=== PATIENT | female | born 1990 | race Two or more races ===

== ENCOUNTER 2018-03-05 18:11 | Emergency (ER) | payer SELFPAY ==
[2018-03-05 18:24] LABS: URINE HCG POC HCG POSITIVE (Negative)
[2018-03-05 18:50] LABS: ADD MAN DIFF? NO
[2018-03-05 18:52] LABS: BASO # 0.1 x10^3/uL (0.0-0.2); BASO % 1 % (0-3); EOS # 0.3 x10^3/uL (0.0-0.7); EOS % 3 % (0-3); HEMATOCRIT 34.1 % (36.0-47.0); HEMOGLOBIN 11.6 g/dL (12.0-15.5); LYMPH # 2.9 x10^3/uL (1.0-4.8); LYMPH % 28 % (24-48); MEAN CORPUSCULAR HEMOGLOBIN 28 pg (25-35); MEAN CORPUSCULAR HGB CONC 34 g/dL (31-37); MEAN CORPUSCULAR VOLUME 81 fL (79-100); MONO # 0.8 x10^3/uL (0.0-1.1); MONO % 7 % (0-9); NEUT # 6.4 x10^3uL (1.8-7.7); NEUT % 61 % (31-73); PLATELET COUNT 384 x10^3/uL (140-400); RED BLOOD COUNT 4.19 x10^6/uL (3.50-5.40); RED CELL DISTRIBUTION WIDTH 13.3 % (11.5-14.5); WHITE BLOOD COUNT 10.5 x10^3/uL (4.0-11.0)
[2018-03-05] MEDS: IV NORMAL SALINE 1000ML BAG 1,000 ML IV (18:55)
[2018-03-05 18:56] LABS: BILIRUBIN,URINE NEGATIVE (NEG); CLARITY,URINE CLOUDY; COLOR,URINE YELLOW; GLUCOSE,URINE NEGATIVE (NEG); NITRITE,URINE NEGATIVE (NEG); PH,URINE 6.5; PROTEIN,URINE NEGATIVE (NEG-TRACE); UROBILINOGEN,URINE 0.2 mg/dL (0.2 mg/dL)
[2018-03-05 19:01] LABS: ANION GAP 10 (6-14); BLOOD UREA NITROGEN 11 mg/dL (7-20); BUN/CREATININE RATIO 18 (6-20); CALCIUM 8.9 mg/dL (8.5-10.1); CARBON DIOXIDE 23 mmol/L (21-32); CHLORIDE 103 mmol/L (98-107); CREATININE 0.6 mg/dL (0.6-1.0); GFR 119.9; GLUCOSE 87 mg/dL (70-99); POTASSIUM 3.5 mmol/L (3.5-5.1); SODIUM 136 mmol/L (136-145)
[2018-03-05 19:07] LABS: ALBUMIN 3.6 g/dL (3.4-5.0); ALBUMIN/GLOBULIN RATIO 0.8 (1.0-1.7); ALK PHOS 75 U/L (46-116); ALT (SGPT) 29 U/L (14-59); AST (SGOT) 21 U/L (15-37); MAGNESIUM 1.9 mg/dL (1.8-2.4); TOTAL BILIRUBIN 0.2 mg/dL (0.2-1.0); TOTAL PROTEIN 8.2 g/dL (6.4-8.2)
[2018-03-05 19:13] LABS: BACTERIA,URINE MODERATE /HPF (0-FEW); SQUAMOUS EPITHELIAL CELL,UR MANY /LPF; YEAST,URINE PRESENT /HPF
[2018-03-05] MEDS: AZITHROMYCIN 250 MG TABLET. PO (20:37)
[2018-03-05] MEDS: metroNIDAZOLE 500 MG TABLET PO (20:37)
[2018-03-05] MEDS: cefTRIAXone IM 250 MG VIAL IM (20:37)
[2018-03-07 14:37] LABS: CHLAMYDIA PROBE Negative (Negative); GC PROBE Negative (Negative)
== END 2018-03-05 21:07 | disposition home or self-care (01) ==
LOC: ER 18:11
DX: O23.41 Unspecified infection of urinary tract in pregnancy, first trimester (principal); O98.811 Other maternal infectious and parasitic diseases complicating pregnancy, first trimester; B37.3 Candidiasis of vulva and vagina; O23.591 Infection of other part of genital tract in pregnancy, first trimester; B96.89 Other specified bacterial agents as the cause of diseases classified elsewhere; Z3A.01 Less than 8 weeks gestation of pregnancy
CPT/HCPCS: 36415; 76801; 80053; 81001; 81025; 83735; 84702; 85025; 86900; 86901; 87491; 87591; 96372; 99285-25; J0696; J7030; Q0111; Q0144

== ENCOUNTER 2018-10-24 06:03 | Inpatient (IN) | payer OTHER ==
[~2018-10-24] VITALS: Ht 152.4 cm; Wt 74.4 kg
[~2018-10-24 06:03] MED LIST: CEPH-264 PO; FLUC150T PO; METR500T PO
[2018-10-24] MEDS ORDERED: ONDANSETRON PF 4 MG/2 ML VIAL. IV PRN ×2 (06:15→13:00)
[2018-10-24] MEDS ORDERED: MAG HYDROX/ALUMINUM HYD/SIMETH 30 ML ORAL.SUSP PO PRN ×2 (06:15→15:30)
[2018-10-24] MEDS ORDERED: NALBUPHINE 10 MG/ML AMPUL. IV PRN (06:15)
[2018-10-24] MEDS ORDERED: 0.9 % SODIUM CHLORIDE 10 ML DISP.SYRIN. IV PRN ×2 (06:15→15:30)
[2018-10-24] MEDS ORDERED: AMPICILLIN SODIUM 2 GM in IV NORMAL SALINE 100ML 100 ML IV ONE (06:15)
[2018-10-24] MEDS ORDERED: TERBUTALINE 1 MG/ML VIAL. SQ PRN (06:15)
[2018-10-24] MEDS ORDERED: OXYTOCIN 30 UNIT/500 ML PREMIX 500 ML IV PRN ×3 (06:15→15:30)
[2018-10-24] MEDS ORDERED: LIDOCAINE 1% PF 30 ML VIAL. INJ PRN (06:15)
[2018-10-24] MEDS ORDERED: IV RINGERS,LACTATED 1000ML 1,000 ML IV SCH ×2 (06:15→12:49)
[2018-10-24] MEDS ORDERED: ACETAMINOPHEN 325 MG TABLET. PO PRN ×2 (06:15→15:30)
[2018-10-24 06:55] LABS: BASO # 0.1 x10^3/uL (0.0-0.2); BASO % 1 % (0-3); EOS # 0.1 x10^3/uL (0.0-0.7); EOS % 1 % (0-3); HEMATOCRIT 34.7 % (36.0-47.0); HEMOGLOBIN 11.5 g/dL (12.0-15.5); LYMPH # 2.7 x10^3/uL (1.0-4.8); LYMPH % 25 % (24-48); MEAN CORPUSCULAR HEMOGLOBIN 27 pg (25-35); MEAN CORPUSCULAR HGB CONC 33 g/dL (31-37); MEAN CORPUSCULAR VOLUME 82 fL (79-100); MONO # 0.6 x10^3/uL (0.0-1.1); MONO % 6 % (0-9); NEUT # 7.2 x10^3uL (1.8-7.7); NEUT % 67 % (31-73); PLATELET COUNT 310 x10^3/uL (140-400); RED BLOOD COUNT 4.23 x10^6/uL (3.50-5.40); RED CELL DISTRIBUTION WIDTH 13.9 % (11.5-14.5); WHITE BLOOD COUNT 10.7 x10^3/uL (4.0-11.0)
[2018-10-24 08:54] LABS: BILIRUBIN,URINE NEGATIVE (NEG); CLARITY,URINE CLEAR; COLOR,URINE AMBER; NITRITE,URINE NEGATIVE (NEG); PROTEIN,URINE 30 mg/dL (NEG-TRACE)
[2018-10-24] MEDS ORDERED: OXYTOCIN PREMIX 30 UNIT/500 ML BAG. IV ONE (09:00)
[2018-10-24 09:13] LABS: SQUAMOUS EPITHELIAL CELL,UR MANY /LPF
[2018-10-24 09:14] LABS: BACTERIA,URINE MODERATE /HPF (0-FEW); RBC,URINE FOBS /HPF (0-2)
[2018-10-24] MEDS ORDERED: AMPICILLIN SODIUM 1 GM in IV NORMAL SALINE 50ML 50 ML IV SCH (10:00)
[2018-10-24] MEDS ORDERED: fentaNYL PF VIAL 100 MCG/2 ML VIAL IV PRN (11:45)
[2018-10-24] MEDS ORDERED: ROPIVacaine 0.2% PF 10 ML VIAL. ONE (12:10)
[2018-10-24] MEDS ORDERED: L&D EPIDURAL SYRINGE 50 ML ONE (12:10)
[2018-10-24] MEDS ORDERED: NALOXONE 0.4 MG/ML VIAL. IV PRN (13:00)
[2018-10-24] MEDS ORDERED: ePHEDrine PF IN SALINE 50 MG/10 ML SYRINGE. IV PRN (13:00)
[2018-10-24] MEDS ORDERED: ROPIVacaine 0.2% IN 0.9%NACL PF 40 MG/20 ML DISP.SYRIN. EPID PRN (13:00)
[2018-10-24] MEDS ORDERED: L&D EPIDURAL SYRINGE 50 ML EPID PRN (13:00)
[2018-10-24] MEDS ORDERED: fentaNYL PF VIAL 100 MCG/2 ML VIAL EPI PRN (13:00)
[2018-10-24] MEDS ORDERED: ZOLPIDEM 5 MG TABLET. PO PRN (15:30)
[2018-10-24] MEDS ORDERED: BENZOCAINE 20% TOPICAL AEROSOL SPRAY 57GM CAN. TP PRN (15:30)
[2018-10-24] MEDS ORDERED: SIMETHICONE 80 MG TAB.CHEW PO PRN (15:30)
[2018-10-24] MEDS ORDERED: HYDROCORTISONE 1% TOPICAL OINTMENT 30GM TUBE. TP PRN (15:30)
[2018-10-24] MEDS ORDERED: MAGNESIUM HYDROXIDE 2,400 MG/30 ML ORAL.SUSP. PO PRN (15:30)
[2018-10-24] MEDS ORDERED: MMR per PROTOCOL. MC PRN (15:30)
[2018-10-24] MEDS ORDERED: diphenhydrAMINE HCL 25 MG CAPSULE PO PRN (15:30)
[2018-10-24] MEDS ORDERED: oxyCODONE/APAP 5/325 1 TAB TABLET PO PRN (15:30)
[2018-10-24] MEDS ORDERED: PHENYLEPH/MINERAL OIL/PETROLAT RECTAL OINTMENT 28GM TUBE. RC PRN ×2 (15:30→17:45)
--- NOTE | 2018-10-24 15:34 | PDOC ---
GENERAL General: 28 yrs old lady EDC 10/25/18 admitted for Induction of Labor. Cervix Closed on Admission. Will start her on Pitocin.for Labor Induction. VITAL SIGNS Vital Signs: Vital Signs Date Time Temp Pulse Resp B/P (MAP) Pulse Ox O2 Delivery O2 Flow Rate FiO2 10/24/18 11:46 16 ALLERGIES Allergies: Allergies Coded Allergies Type Severity Reaction Last Updated Verified No Known Drug Allergies 03/05/18 No MEDS Medications: Current Medications Medications (Trade) Dose Ordered Sig/Joel Start Time Stop Time Status Last Admin Dose Admin Acetaminophen (Tylenol) 650 mg PRN Q6HRS PRN 10/24/18 06:15 Al Hydroxide/Mg Hydroxide (Mylanta Plus Xs) 30 ml PRN Q4HRS PRN 10/24/18 06:15 Ampicillin Sodium 1 gm/Sodium Chloride 50 ml @ 100 mls/hr Q4H 10/24/18 10:00 10/24/18 11:43 100 MLS/HR Ampicillin Sodium 2 gm/Sodium Chloride 100 ml @ 200 mls/hr 1X ONCE 10/24/18 06:15 10/24/18 06:44 DC 10/24/18 07:57 200 MLS/HR Ephedrine Sulfate (ePHEDrine PF IN SALINE SYRINGE) 10 mg PRN Q2MIN PRN 10/24/18 13:00 Fentanyl Citrate (Fentanyl 2ml Vial) 100 mcg PRN 1X PRN 10/24/18 13:00 10/25/18 12:59 Ibuprofen (Motrin) 800 mg PRN Q6HRS PRN 10/24/18 06:15 Lidocaine HCl (Xylocaine 1% Pf 30ml Vial) 30 ml 1X PRN PRN 10/24/18 06:15 10/26/18 06:14 Nalbuphine HCl (Nubain) 10 mg PRN Q1HR PRN 10/24/18 06:15 Naloxone HCl (Narcan) 0.4 mg PRN Q1MIN PRN 10/24/18 13:00 Ondansetron HCl (Zofran) 4 mg PRN Q6HRS PRN 10/24/18 13:00 Oxytocin/Sodium Chloride 500 ml @ 0 mls/hr CONT PRN PRN 10/24/18 06:15 Ringer's Solution 1,000 ml @ 1,000 mls/hr Q1H 10/24/18 12:49 10/24/18 13:48 DC Ropivacaine (Naropin 0.2%) 10 ml STK-MED ONCE 10/24/18 12:10 10/24/18 12:11 DC Ropivacaine/ Fentanyl/NS 50 ml @ 14 mls/hr CONT PRN 10/24/18 13:00 10/27/18 12:48 Ropivacaine/ Sodium Chloride (ROPIVacaine 0.2% - 0.9%NACL PF) 40 mg PRN 1X PRN 10/24/18 13:00 10/25/18 12:49 Sodium Chloride (Normal Saline Flush) 3 ml QSHIFT PRN 10/24/18 06:15 Terbutaline Sulfate (Brethine) 0.25 mg 1X PRN PRN 10/24/18 06:15 10/25/18 06:14 LAB Lab: Laboratory Tests Test 10/24/18 06:39 10/24/18 08:45 White Blood Count 10.7 x10^3/uL (4.0-11.0) Red Blood Count 4.23 x10^6/uL (3.50-5.40) Hemoglobin 11.5 g/dL (12.0-15.5) Hematocrit 34.7 % (36.0-47.0) Mean Corpuscular Volume 82 fL (79-100) Mean Corpuscular Hemoglobin 27 pg (25-35) Mean Corpuscular Hemoglobin Concent 33 g/dL (31-37) Red Cell Distribution Width 13.9 % (11.5-14.5) Platelet Count 310 x10^3/uL (140-400) Neutrophils (%) (Auto) 67 % (31-73) Lymphocytes (%) (Auto) 25 % (24-48) Monocytes (%) (Auto) 6 % (0-9) Eosinophils (%) (Auto) 1 % (0-3) Basophils (%) (Auto) 1 % (0-3) Neutrophils # (Auto) 7.2 x10^3uL (1.8-7.7) Lymphocytes # (Auto) 2.7 x10^3/uL (1.0-4.8) Monocytes # (Auto) 0.6 x10^3/uL (0.0-1.1) Eosinophils # (Auto) 0.1 x10^3/uL (0.0-0.7) Basophils # (Auto) 0.1 x10^3/uL (0.0-0.2) Treponema pallidum Antibody Nonreactive (Nonreactive) Urine Collection Type Void Urine Color [place] Urine Clarity Clear Urine pH 6.0 Urine Specific [place] 1.025 Urine Protein 30 mg/dL (NEG-TRACE) Urine Glucose (UA) Negative mg/dL (NEG) Urine Ketones (Stick) Negative mg/dL (NEG) Urine Blood Moderate (NEG) Urine Nitrite Negative (NEG) Urine Bilirubin Negative (NEG) Urine Urobilinogen Dipstick 1.0 mg/dL (0.2 mg/dL) Urine Leukocyte Esterase Moderate (NEG) Urine RBC Fobs /HPF (0-2) Urine WBC 11-20 /HPF (0-4) Urine Squamous Epithelial Cells Many /LPF Urine Bacteria Moderate /HPF (0-FEW) Urine Mucus Slight /LPF ASSESSMENT & PLAN A&P Delivered an Alive Male baby 6lbs 9 oz . Spontaneous Vaginal Delivery. 8/9. EBL 200 cc. BASIL COLEMAN MD Oct 24, 2018 15:34
--- NOTE | 2018-10-24 16:38 | OP ---
DATE OF SURGERY: This patient is a 28-year-old Polish lady who is a 2, para 1, EDC 10/25/2018, admitted to the hospital for induction of labor, and this was scheduled induction by Dr. Carrillo, and she was given IV Pitocin. She did receive epidural block during the time of labor. She got to complete dilatation and had a spontaneous vaginal delivery. A live male baby, weighing 6 pounds 9 ounces, delivered, spontaneous vaginal delivery with the score of 8 and 9 at 3:11 p.m. on 10/24/2018, and cord was clamped and cut. Cord blood was taken. Placenta removed spontaneous. No hemorrhage noted. She did receive Pitocin after delivery of the placenta. There is a small superficial first-degree laceration of the vulva, repaired with 2-0 chromic catgut sutures, and the baby is referred to communications administrator for further care and treatment and mother tolerated the delivery well. ESTIMATED BLOOD LOSS: 200 mL. BASIL COLEMAN MD DR: SAMINA/fernandez JOB#: [id number] / [id number]
[2018-10-24] MEDS ORDERED: IBUPROFEN 200 MG TABLET. PO SCH (18:00)
[2018-10-24] MEDS: IBUPROFEN 400 MG TABLET. PO PRN (19:13)
[2018-10-24 19:25] VITALS: BP 109/53
[2018-10-24 20:25] VITALS: BP 106/45
[2018-10-25 01:15] VITALS: BP 89/46
[2018-10-25] MEDS: IBUPROFEN 400 MG TABLET. PO PRN (01:30)
[2018-10-25] MEDS: DOCUSATE SODIUM 100 MG CAPSULE. PO PRN ×2 (01:30→11:01)
[2018-10-25 05:53] VITALS: BP 94/51
[2018-10-25] MEDS ORDERED: FERROUS SULFATE 325 MG TABLET. PO SCH (08:00)
[2018-10-25 11:00] VITALS: BP 113/73
--- NOTE | 2018-10-25 11:32 | PDOC ---
GENERAL General: Mom and Baby doing well. No problems. VITAL SIGNS Vital Signs: Vital Signs Date Time Temp Pulse Resp B/P (MAP) Pulse Ox O2 Delivery O2 Flow Rate FiO2 10/25/18 11:00 98.2 68 18 113/73 (86) 98 Room Air 98.2 ALLERGIES Allergies: Allergies Coded Allergies Type Severity Reaction Last Updated Verified No Known Drug Allergies 03/05/18 No MEDS Medications: Current Medications Medications (Trade) Dose Ordered Sig/Joel Start Time Stop Time Status Last Admin Dose Admin Acetaminophen (Tylenol) 650 mg PRN Q6HRS PRN 10/24/18 15:30 Al Hydroxide/Mg Hydroxide (Mylanta Plus Xs) 30 ml PRN Q4HRS PRN 10/24/18 15:30 Ampicillin Sodium 1 gm/Sodium Chloride 50 ml @ 100 mls/hr Q4H 10/24/18 10:00 10/25/18 06:00 DC 10/24/18 11:43 100 MLS/HR Ampicillin Sodium 2 gm/Sodium Chloride 100 ml @ 200 mls/hr 1X ONCE 10/24/18 06:15 10/25/18 06:00 DC 10/24/18 07:57 200 MLS/HR Benzocaine (Americaine) 1 spray PRN QID PRN 10/24/18 15:30 10/24/18 18:02 1 SPRAY Diphenhydramine HCl (Benadryl) 25 mg PRN Q6HRS PRN 10/24/18 15:30 Diphtheria/ Tetanus/Acell Pertussis (Boostrix) 0.5 ml ONCE ONCE 10/25/18 12:00 10/25/18 12:01 Docusate Sodium (Colace) 100 mg PRN BID PRN 10/24/18 15:30 10/25/18 11:01 100 MG Ephedrine Sulfate (ePHEDrine PF IN SALINE SYRINGE) 10 mg PRN Q2MIN PRN 10/24/18 13:00 Fentanyl Citrate (Fentanyl 2ml Vial) 100 mcg PRN 1X PRN 10/24/18 13:00 10/25/18 12:59 Ferrous Sulfate (Feosol) 325 mg BIDWMEALS 10/25/18 08:00 Hydrocortisone (Cortaid) 1 trina PRN QID PRN 10/24/18 15:30 Ibuprofen (Motrin) 600 mg Q6HRS 10/24/18 18:00 10/25/18 07:33 600 MG Info (Do NOT chart on this placeholder) 1 ea 1X PRN PRN 10/24/18 15:30 Lidocaine HCl (Xylocaine 1% Pf 30ml Vial) 30 ml 1X PRN PRN 10/24/18 06:15 10/26/18 06:14 Magnesium Hydroxide (Milk Of Magnesia) 2,400 mg PRN DAILY PRN 10/24/18 15:30 Nalbuphine HCl (Nubain) 10 mg PRN Q1HR PRN 10/24/18 06:15 Naloxone HCl (Narcan) 0.4 mg PRN Q1MIN PRN 10/24/18 13:00 Ondansetron HCl (Zofran) 4 mg PRN Q6HRS PRN 10/24/18 13:00 Oxycodone/ Acetaminophen (Percocet 5/325) 2 tab PRN Q4HRS PRN 10/24/18 15:30 Oxytocin/Sodium Chloride (Oxytocin Premix Infusion) 30 unit STK-MED ONCE 10/24/18 09:00 10/25/18 08:31 DC Phenyleph/Shark Oil/Min Oil/Petrol (Preparation H) 1 trina PRN DAILY PRN 10/24/18 17:45 UNV Ringer's Solution 1,000 ml @ 1,000 mls/hr Q1H 10/24/18 12:49 10/24/18 13:48 DC Ropivacaine (Naropin 0.2%) 10 ml STK-MED ONCE 10/24/18 12:10 10/24/18 12:11 DC Ropivacaine/ Fentanyl/NS 50 ml @ 14 mls/hr CONT PRN 10/24/18 13:00 10/25/18 06:00 DC 10/24/18 18:41 14 MLS/HR Ropivacaine/ Sodium Chloride (ROPIVacaine 0.2% - 0.9%NACL PF) 40 mg PRN 1X PRN 10/24/18 13:00 10/24/18 18:45 DC 10/24/18 18:43 40 MG Simethicone (Gas-X) 80 mg PRN AFTMEALHC PRN 10/24/18 15:30 Sodium Chloride (Normal Saline Flush) 10 ml QSHIFT PRN 10/24/18 15:30 Terbutaline Sulfate (Brethine) 0.25 mg 1X PRN PRN 10/24/18 06:15 10/25/18 06:14 DC Zolpidem Tartrate (Ambien) 5 mg PRN QHS PRN 10/24/18 15:30 LAB Lab: Laboratory Tests Test 10/25/18 05:30 Hematocrit 31.7 % (36.0-47.0) ASSESSMENT & PLAN A&P Abdomen soft. Uterus firm Lochia normal. Plan dismissal in am. BASIL COLEMAN MD Oct 25, 2018 11:32
[2018-10-25] MEDS ORDERED: DIPHTH,PERTUSS(ACELL),TET TOX 0.5 ML DISP.SYRIN. VAX IM ONE (12:00)
[2018-10-25 15:11] VITALS: BP 104/42
[2018-10-25 21:30] VITALS: BP 106/66
[2018-10-26] MEDS: IBUPROFEN 400 MG TABLET. PO PRN (08:26)
[2018-10-26] MEDS: DOCUSATE SODIUM 100 MG CAPSULE. PO PRN (08:26)
--- NOTE | 2018-10-26 09:54 | PDOC ---
GENERAL General: Patient doing well. No problems. VITAL SIGNS Vital Signs: Vital Signs Date Time Temp Pulse Resp B/P (MAP) Pulse Ox O2 Delivery O2 Flow Rate FiO2 10/25/18 21:30 97.9 76 106/66 (79) 98 97.9 10/25/18 15:11 17 Room Air ALLERGIES Allergies: Allergies Coded Allergies Type Severity Reaction Last Updated Verified No Known Drug Allergies 03/05/18 No MEDS Medications: Current Medications Medications (Trade) Dose Ordered Sig/Joel Start Time Stop Time Status Last Admin Dose Admin Acetaminophen (Tylenol) 650 mg PRN Q6HRS PRN 10/24/18 15:30 Al Hydroxide/Mg Hydroxide (Mylanta Plus Xs) 30 ml PRN Q4HRS PRN 10/24/18 15:30 Ampicillin Sodium 1 gm/Sodium Chloride 50 ml @ 100 mls/hr Q4H 10/24/18 10:00 10/25/18 06:00 DC 10/24/18 11:43 100 MLS/HR Ampicillin Sodium 2 gm/Sodium Chloride 100 ml @ 200 mls/hr 1X ONCE 10/24/18 06:15 10/25/18 06:00 DC 10/24/18 07:57 200 MLS/HR Benzocaine (Americaine) 1 spray PRN QID PRN 10/24/18 15:30 10/24/18 18:02 1 SPRAY Diphenhydramine HCl (Benadryl) 25 mg PRN Q6HRS PRN 10/24/18 15:30 Diphtheria/ Tetanus/Acell Pertussis (Boostrix) 0.5 ml ONCE ONCE 10/25/18 12:00 10/25/18 12:01 DC 10/25/18 13:20 0.5 ML Docusate Sodium (Colace) 100 mg PRN BID PRN 10/24/18 15:30 10/26/18 08:26 100 MG Ephedrine Sulfate (ePHEDrine PF IN SALINE SYRINGE) 10 mg PRN Q2MIN PRN 10/24/18 13:00 Fentanyl Citrate (Fentanyl 2ml Vial) 100 mcg PRN 1X PRN 10/24/18 13:00 10/25/18 12:59 DC Ferrous Sulfate (Feosol) 325 mg BIDWMEALS 10/25/18 08:00 Hydrocortisone (Cortaid) 1 trina PRN QID PRN 10/24/18 15:30 Ibuprofen (Motrin) 600 mg Q6HRS 10/24/18 18:00 10/25/18 07:33 600 MG Info (Do NOT chart on this placeholder) 1 ea 1X PRN PRN 10/24/18 15:30 Lidocaine HCl (Xylocaine 1% Pf 30ml Vial) 30 ml 1X PRN PRN 10/24/18 06:15 10/26/18 06:14 DC Magnesium Hydroxide (Milk Of Magnesia) 2,400 mg PRN DAILY PRN 10/24/18 15:30 Nalbuphine HCl (Nubain) 10 mg PRN Q1HR PRN 10/24/18 06:15 Naloxone HCl (Narcan) 0.4 mg PRN Q1MIN PRN 10/24/18 13:00 Ondansetron HCl (Zofran) 4 mg PRN Q6HRS PRN 10/24/18 13:00 Cancel Oxycodone/ Acetaminophen (Percocet 5/325) 2 tab PRN Q4HRS PRN 10/24/18 15:30 Oxytocin/Sodium Chloride (Oxytocin Premix Infusion) 30 unit STK-MED ONCE 10/24/18 09:00 10/25/18 08:31 DC Phenyleph/Shark Oil/Min Oil/Petrol (Preparation H) 1 trina PRN DAILY PRN 10/24/18 17:45 UNV Ringer's Solution 1,000 ml @ 1,000 mls/hr Q1H 10/24/18 12:49 10/24/18 13:48 DC Ropivacaine (Naropin 0.2%) 10 ml STK-MED ONCE 10/24/18 12:10 10/24/18 12:11 DC Ropivacaine/ Fentanyl/NS 50 ml @ 14 mls/hr CONT PRN 10/24/18 13:00 10/25/18 06:00 DC 10/24/18 18:41 14 MLS/HR Ropivacaine/ Sodium Chloride (ROPIVacaine 0.2% - 0.9%NACL PF) 40 mg PRN 1X PRN 10/24/18 13:00 10/24/18 18:45 DC 10/24/18 18:43 40 MG Simethicone (Gas-X) 80 mg PRN AFTMEALHC PRN 10/24/18 15:30 Sodium Chloride (Normal Saline Flush) 10 ml QSHIFT PRN 10/24/18 15:30 Terbutaline Sulfate (Brethine) 0.25 mg 1X PRN PRN 10/24/18 06:15 10/25/18 06:14 DC Zolpidem Tartrate (Ambien) 5 mg PRN QHS PRN 10/24/18 15:30 ASSESSMENT & PLAN A&P Patient can go home today. Will see her in office in 6 weeks. BASIL COLEMAN MD Oct 26, 2018 09:54
[2018-10-26 10:30] VITALS: BP 105/61
--- NOTE | 2018-10-26 10:44 | NUR ---
home instructions gone over with pt and signed. all questions answered on home care
--- NOTE | 2018-11-06 16:28 | HP ---
ADMIT DATE: 10/24/2018 CHIEF COMPLAINT AND HISTORY OF PRESENT ILLNESS: This patient is a 28-year-old Arabic lady who is a 2, para 1, seen by Dr. Carrillo in the office. Her EDC is 10/25/2018, was admitted to the hospital on 10/24/2018 for elective induction of labor and she was given IV Pitocin for delivery. PHYSICAL EXAMINATION: VITAL SIGNS: Stable. HEAD, EYES, NOSE, THROAT: Within normal limits. LUNGS: Clear. HEART: Sounds regular sinus rhythm. ABDOMEN: Term size uterus. heart tones are 146 per minute, vertex presenting. PELVIC: Shows cervix 1 cm dilated, membranes intact. EXTREMITIES: No edema of feet. IMPRESSION: 2, para 1, term . PLAN: Induction of labor and vaginal delivery. BASIL COLEMAN MD DR: SAMINA/fernandez JOB#: [id number] / [id number]
--- NOTE | 2018-11-14 19:56 | DS ---
DATE OF DISCHARGE: 10/26/2018 SUBJECTIVE: This patient is a 28-year-old [place] lady who is a 2, para 1, EDC 10/25/2018, patient of Dr. Carrillo was admitted to the hospital for induction of labor and this was a scheduled induction and she was admitted and also, IV Pitocin started. OBJECTIVE: VITAL SIGNS: Stable. HEENT: Within normal limits. LUNGS: Clear. HEART: Sounds regular sinus rhythm. ABDOMEN: Term size uterus. heart tones of 140 per minute, vertex presenting. PELVIC: Showed cervix about 1 cm dilated and the presenting part is high. EXTREMITIES: No edema of feet. HOSPITAL COURSE: She did have a normal course of labor and had a spontaneous vaginal delivery. A live male baby, weighing 6 pounds 9 ounces delivered without any problems. No hemorrhage and no tears. There was a small superficial first degree laceration vulva, which was repaired with 2-0 chromic catgut sutures and course was uneventful. The patient was dismissed to home care on 10/26/2018 with the advice to come to the office in six weeks for care and checkup. DIAGNOSES: 2, para 1, spontaneous vaginal delivery. PLAN: She will be seen in the office for her six weeks exam. BASIL COLEMAN MD DR: SAMINA/fernandez JOB#: [id number] / [id number]
== END 2018-10-26 12:13 | disposition home or self-care (01) | DRG 807 ==
LOC: 3 SO LND 06:03 → 3 NORTH 19:25
PROVIDERS: ADMIT Obstetrics & Gynecology; ATTEND Obstetrics & Gynecology
PROC: 10E0XZZ Delivery of Products of Conception, External Approach (ICD-10-PCS; principal; 2018-10-26)
PROC: 0UQMXZZ Repair Vulva, External Approach (ICD-10-PCS; 2018-10-26)
PROC: 3E033VJ Introduction of Other Hormone into Peripheral Vein, Percutaneous Approach (ICD-10-PCS; 2018-10-26)
PROC: 3E0R3BZ Introduction of Anesthetic Agent into Spinal Canal, Percutaneous Approach (ICD-10-PCS; 2018-10-26)
PROC: 3E0R33Z Introduction of Anti-inflammatory into Spinal Canal, Percutaneous Approach (ICD-10-PCS; 2018-10-26)
DX: O99.824 Streptococcus B carrier state complicating childbirth (principal); Z37.0 Single live birth; O70.0 First degree perineal laceration during delivery; Z3A.40 40 weeks gestation of pregnancy
CPT/HCPCS: 36415; 81001; 85014; 85025; 86592; 86850; 86900; 86901; 87086; 90471; 90715; J0290; J2590; J2795; J3010; J7120